=== PATIENT | female | born 1975 | race Caucasian/White ===

== ENCOUNTER 2017-10-01 18:09 | Emergency (ER) | payer MEDICAID ==
[~2017-10-01] VITALS: Ht 172.7 cm; Wt 59.7 kg
[2017-10-01 18:11] VITALS: BP 116/74
[2017-10-01] MEDS ORDERED: LEVO25TA4 PO (19:32)
== END 2017-10-01 20:20 | disposition home or self-care (01) ==
LOC: ED 20:15
DX: J06.9 Acute upper respiratory infection, unspecified (principal); B34.9 Viral infection, unspecified
CPT/HCPCS: 71046; 99284; J7512

== ENCOUNTER 2017-10-08 05:02 | Emergency (ER) | payer MEDICAID ==
[~2017-10-08] VITALS: Ht 172.7 cm; Wt 59.0 kg
[~2017-10-08 05:02] MED LIST: LEVO25TA4 PO
[2017-10-08 05:04] VITALS: BP 126/87
[2017-10-08] MEDS ORDERED: BACITRACIN ZINC OINT 500U/GM, 0.9 GM ONE (05:26)
== END 2017-10-08 06:38 | disposition home or self-care (01) ==
LOC: ED 05:35
DX: S00.31XA Abrasion of nose, initial encounter (principal); F17.200 Nicotine dependence, unspecified, uncomplicated; Y04.0XXA Assault by unarmed brawl or fight, initial encounter; Y93.89 Activity, other specified; Y92.488 Other paved roadways as the place of occurrence of the external cause; Y99.8 Other external cause status
CPT/HCPCS: 70486; 99284

== ENCOUNTER 2019-10-28 22:36 | Emergency (ER) | payer MEDICAID ==
[~2019-10-28] VITALS: Ht 172.7 cm; Wt 58.3 kg
[2019-10-28 22:38] VITALS: BP 124/71
[2019-10-28] MEDS ORDERED: DIPH,PERTUSS(ACELL),TET VAC/PF 0.5 ML IM-VACC ONE ×2 (23:09→23:30)
== END 2019-10-28 23:24 | disposition home or self-care (01) ==
LOC: ED 23:00
DX: S81.851A Open bite, right lower leg, initial encounter (principal); F17.200 Nicotine dependence, unspecified, uncomplicated; Z98.51 Tubal ligation status; X58.XXXA Exposure to other specified factors, initial encounter; Y93.89 Activity, other specified; Y92.89 Other specified places as the place of occurrence of the external cause; Y99.8 Other external cause status
CPT/HCPCS: 99283